=== PATIENT | female | born 1980 | race Caucasian/White ===

== ENCOUNTER 2016-11-13 16:41 | Emergency (ER) | payer MEDICAID ==
[2016-11-13] MEDS ORDERED: NORMAL SALINE 1,000 ML IV ONE (16:47)
[2016-11-13] MEDS ORDERED: diphenhydrAMINE HCL 50 MG/ML VIAL IV ONE ×2 (16:47→18:10)
[2016-11-13] MEDS ORDERED: NALBUPHINE HCL 20 MG/ML AMPUL IV ONE (16:47)
[2016-11-13] MEDS ORDERED: PROMETHAZINE HCL 25 MG in DEXTROSE 5 % IN WATER 50 ML IV ONE ×2 (16:47)
--- NOTE | 2016-11-13 16:57 | ERNOTE ---
Headache ER HPI - Narrative Date of Service: 11/13/16 - General Presenting Symptoms: "migraine" Time Seen by Provider: 11/13/16 16:49 Source: patient Exam Limitations: no limitations - Immun/Allergies/Home Medications Immunizations: IMMUNIZATION HX Immunizations Up to Date Yes History of Influenza Vaccine Yes Hx Pneumococcal Vaccination No Allergies/Adverse Reactions: Allergies trimethobenzamide [Trimethobenzamide] Allergy (Severe, Verified 11/13/16 17:27) SEIZURES trimethobenzamide HCl [From Tigan] Allergy (Severe, Verified 11/13/16 17:27) seizures furosemide [From Lasix] Allergy (Intermediate, Verified 11/13/16 17:27) TONGUE SWELLING hyaluronate sodium [From ORTHOVISC] Allergy (Mild, Verified 11/13/16 17:27) Hives hydrocodone Allergy (Mild, Verified 11/13/16 17:27) ITCH ALL OVER morphine Allergy (Mild, Verified 11/13/16 17:27) Hives prochlorperazine edisylate [From Compazine] Adverse Reaction (Intermediate, Verified 11/13/16 17:27) LOCK JAW prochlorperazine maleate [From Compazine] Adverse Reaction (Intermediate, Verified 11/13/16 17:27) LOCK JAW varenicline tartrate [From Chantix Starting Month Box] Adverse Reaction ( Intermediate, Verified 11/13/16 17:27) face red, altered vision zolpidem [Zolpidem] Adverse Reaction (Mild, Verified 11/13/16 17:27) SEVERE DAYTIME LETHARGY Home Medications: HOME MEDICATIONS Ranitidine HCl [Zantac] 150 mg PO DAILY 03/18/15 [Last Taken Unknown] - History of Present Illness Narrative: Pt. comes in with c/o R temporal headache that started two days ago. Pt. denies any SOB, CP, vision changes, or dizziness. Pt. does state that she has nausea and floaters. Pt. denies any alleviating factors despite taking excedrin migraine. Pt. denies that this is the worst headache she has had. Review of Systems - Review of Systems Constitutional: Present: fatigue, malaise. Absent: fever, chills, weakness EYE: Present: other - floaters ENT: Present: no symptoms reported. Absent: nose congestion, nasal drainage, sore throat, throat swelling Respiratory: Present: no symptoms reported. Absent: shortness of breath, cough , wheezing Cardiology: Present: no symptoms reported. Absent: chest pain, palpitations, edema Gastrointestinal/Abdominal: Present: nausea, vomiting. Absent: diarrhea, abdominal pain Genitourinary: Present: no symptoms reported. Absent: frequency, decreased urinary output Musculoskeletal: Present: muscle pain - generalized. Absent: back pain, neck pain, joint pain Skin: Present: no symptoms reported. Absent: rash, change in color Neurological: Present: See HPI, headache. Absent: dizziness/light-headedness, numbness, tingling All Other Systems: All systems neg except as marked - Patient's Past Medical History Patient History - Medical: Depression, GERD, Migraines Patient History - Cardiac/Respiratory: Asthma Patient History - Cancer: No Hx of Cancer Patient History - Surgical Procedures: D & C, Hysterectomy, T & A, Other Patient History - Other: None - Family History Mother Family History - Medical: No pertinent hx Father Family History - Medical: No pertinent hx - Social History Living Situations: home Abuse History: No History of abuse Psych History: No pertinent hx Smoking Status: Current every day smoker Have you smoked in the past 12 months: Yes Alcohol Use: none Drug Use: none - Immunizations Immunizations Up to Date: Yes Hx Pneumococcal Vaccination: No History of Influenza Vaccine: Yes Physical Exam - Physical Exam General Appearance: Present: wd/wn, alert, no apparent distress Eye Exam: Normal inspection: bilateral, PERRL: bilateral, EOMI: bilateral Ears, Nose, Throat: Present: normal ENT inspection, normal pharynx Neck: Present: normal inspection, nontender. Absent: lymphadenopathy (R), lymphadenopathy (L) Respiratory: Present: no respiratory distress, normal breath sounds, no accessory muscle use, chest nontender, lungs clear Cardiovascular/Chest: Present: regular rate, rhythm, no murmur, normal peripheral pulses Gastrointestinal/Abdominal: Present: normal bowel sounds, nontender, nondistended, soft, no organomegaly Back Exam: Present: normal inspection, normal range of motion, no CVA tenderness , no vertebral tenderness Extremity Exam: Present: normal inspection, non-tender, normal range of motion, no edema Neurological Exam: Present: alert, oriented, normal mood/affect, no motor/ sensory deficits, outpatient surgery rn II-XII nml as tested, normal cerebellar test Skin Exam: Present: normal color, warm/dry. Absent: pallor, skin rash ED Progress - Results and Orders Patient's Lab Results:: I have reviewed the patient's lab results. - Vital Signs Patient's Vital Signs:: I have reviewed the patient's vital signs. Vital Signs: Vital Signs 11/13/16 16:44 Temperature 36.4 C L Pulse Rate 83 Respiratory 14 Rate Blood Pressure 133/83 O2 Sat by Pulse 100 Oximetry - Progress/Reassessment Progress:: Improved Departure Clinical Impression: Migraine Qualifiers: Migraine type: without aura Status migrainosus presence: without status migrainosus Intractability: not intractable Qualified Code(s): G43.009 - Migraine without aura, not intractable, without status migrainosus - Departure Disposition: Home self-care Condition: Good Instructions: Recurrent Migraine Headache, [id number] Additional Instructions: Please follow up with primary provider in 2-3 days Referrals: Johny William MD [Primary Care Provider] -
[2016-11-13 16:59] LABS: Hematocrit 41.6 % (37.0-47.0); Mean Cell Volume 95.2 fl (78-100); Mean Corpuscular Hgb Conc 33.7 g/dl (32-36); Neutrophil # 2.7 K/mm3 (1.3-6.0); Neutrophil % 43.8 % (42-75.0); Platelet Count 255 K/mm3 (150-450); Red Blood Count 4.37 M/mm3 (4.2-5.4); Red Cell Distribution Width 12.2 % (11.5-14.0); White Blood Count 6.2 K/mm3 (4.0-10.5)
[2016-11-13 17:13] LABS: Anion Gap 14.5 mmol/L (6.8-13.8); BUN/Creatinine Ratio 13.2 (9.0-21.6); Bilirubin, Total 0.2 mg/dL (0.0-1.1); Ca. Corrected For Albumin 8.2 mg/dL (8.4-10.2); Calcium * 8.5 mg/dL (7.9-10.9); Carbon Dioxide 26.1 mmol/L (24-32.6); Potassium 3.6 mmol/L (3.4-4.6); Total Protein 7.3 gm/dL (6.2-8.2)
[2016-11-13] MEDS ORDERED: diphenhydrAMINE HCL 50 MG/ML VIAL ONE ×2 (17:13→18:14)
[2016-11-13] MEDS ORDERED: NALBUPHINE HCL 20 MG/ML AMPUL ONE (17:13)
--- OUTSIDE RECORDS SUMMARY | 2016-11-13 17:13 | XMS REPORT | Continuity of Care Document ---
:1980 Author Organization [facility] ([facility]) Address [address] [place] [address] Phone [phone] Care Team Providers Name Role Phone Johny William Primary Care Provider [phone] Source Comments This disclosure is being made pursuant to the Care Everywhere program, applicable federal and state laws, and may not contain all informaitonavailable regarding this patient.[facility] ([facility]) Active Allergies and Adverse Reactions Allergen Noted Date Severity Reactions Comments Prochlorperazine OTHER LOCK JAW - compazine Trimethobenzamide (Bulk) Unknown HYPERVENILATES - tigan Current Medications Prescription Sig. Disp. Refills Start Date End Date Status CYCLOBENZAPRINE 10 mg 08/25/2013 Active tablet HYDROCODONE-ACETAMINOPHEN 08/20/2013 Active 5-325 mg per tablet NEXIUM 40 mg EC capsule 08/14/2013 Active FLUOXETINE 20 mg capsule 08/27/2013 Active GABAPENTIN 300 mg capsule 08/27/2013 Active IBUPROFEN 800 mg tablet 06/20/2013 Active OMEPRAZOLE 40 mg extended 08/23/2013 Active release capsule meloxicam 15 mg tablet Take 1 Tab by 30 Tab 11 08/28/2013 Active mouth daily. 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 Pulse 84 08/28/2013 1:16 PM SAFE TECHNICIAN Temperature - - Respiratory Rate - - Height 1.651 m (5' 5") 08/28/2013 1:16 PM SAFE TECHNICIAN Weight 101.606 kg (224 lb) 08/28/2013 1:16 PM SAFE TECHNICIAN Body Mass Index 37.28 08/28/2013 1:16 PM SAFE TECHNICIAN Oxygen Saturation - - Plan of Care Health Maintenance Due Date Last Done Comments Hepatitis B Vaccine (1 of 3 - Primary Series) 1980 Tdap Vaccine 1989 Lipid Disorder Screening 1996 MMR Vaccine 1996 Td Vaccine 1996 Pneumococcal Vaccine (1 of 1 - PPSV23) 1997 Cervical Cancer Screening 2008 Influenza Vaccine: Seasonal (#1) 01/24/2016 Results from Last 3 Months Not on file
--- OUTSIDE RECORDS SUMMARY | 2016-11-13 17:13 | XMS REPORT | Continuity of Care Document ---
:1980 Author Organization [facility] [place] [address] Care Team Providers Name Role Phone Unavailable Primary Care Provider Unavailable Source Comments This disclosure is being made pursuant to the [employer] program and maynot contain all information available regarding this patient.[facility] Active Allergies and Adverse Reactions Not on File Current Medications Be aware that medications may not be up to date as of this document. Alwaysverify current medications with the patient. Not on file Active Problems Not on file Social History Tobacco Use Types Packs/Day Years Used Date Never Assessed Plan of Care Health Maintenance Due Date Last Done Comments Retired-Pertussis Vaccine Adult 1997 Retired-Tetanus Vaccine Adult 1997 Pap Smear 09/23/1999 Retired-INFLUENZA VACCINE 02/23/2015 Results from Last 3 Months Not on file
[2016-11-13] MEDS ORDERED: KETOROLAC TROMETHAMINE 30 MG/ML VIAL IV ONE (18:10)
[2016-11-13] MEDS ORDERED: KETOROLAC TROMETHAMINE 30 MG/ML VIAL ONE (18:14)
[2016-11-13 18:21] VITALS: BP 130/88
== END 2016-11-13 18:50 | disposition home or self-care (01) ==
LOC: ER 16:41
DX: G43.009 Migraine without aura, not intractable, without status migrainosus (principal); K21.9 Gastro-esophageal reflux disease without esophagitis; Z72.0 Tobacco use